=== PATIENT | female | born 1995 | race American Indian/Alaskan Native ===

== ENCOUNTER 2020-05-22 03:37 | Emergency (ER) | payer OTHER ==
--- NOTE | 2020-05-22 13:07 | PCM.EKG ---
[facility] Test Date: 2020-05-22 Test Time: 04:08:38 Pat Name: NEIL DOBSON Department: Room: Gender: F Psych Therapist: JERMAINE : 1995 Requested By: TATE TAI Order Number: [id number] Reading MD: Pooja Tai Measurements Intervals [place] Rate: 69 P: 21 MN: 176 QRS: 79 QRSD: 103 T: 26 QT: 411 QTc: 441 Interpretive Statements Sinus rhythm ST elev, probable normal early repol pattern No previous ECG available for comparison Electronically Signed On 05-23-2020 6:57:14 [employer] by Pooja Tai Please click the below link to view image of tracing.
== END 2020-05-22 05:00 ==
LOC: ER 03:37
DX: R20.0 Anesthesia of skin (principal); Z53.21 Procedure and treatment not carried out due to patient leaving prior to being seen by health care provider
CPT/HCPCS: 93005